=== PATIENT | male | born 2005 | race African-American/Black ===

== ENCOUNTER 2024-02-11 19:35 | Emergency (ER) | payer MEDICAID ==
[~2024-02-11] VITALS: Ht 165.1 cm; Wt 59.0 kg
[2024-02-11 19:45] VITALS: O2SAT 100
[2024-02-11] MEDS ORDERED: IBUP-2029 MT (20:49)
[2024-02-11 22:04] VITALS: BP 151/77; PULSE 95; RESP 18; TEMP 97.3
== END 2024-02-11 22:07 | disposition home or self-care (01) ==
LOC: ER 19:35
DX: S93.601A Unspecified sprain of right foot, initial encounter (principal); I10 Essential (primary) hypertension; X58.XXXA Exposure to other specified factors, initial encounter; Y93.89 Activity, other specified; Y92.89 Other specified places as the place of occurrence of the external cause; Y99.8 Other external cause status
CPT/HCPCS: 73610; 73630; 99284